=== PATIENT | male | born 1955 | race Caucasian/White ===

== ENCOUNTER 2019-07-22 08:15 | Emergency (ER) | payer OTHER ==
[~2019-07-22] VITALS: Ht 177.8 cm; Wt 85.7 kg
[2019-07-22] MEDS ORDERED: GLIP10 PO (10:00)
[2019-07-22] MEDS ORDERED: THERA-D2000 UNIT PO (10:00)
[2019-07-22] MEDS ORDERED: METF500 PO (10:00)
[2019-07-22] MEDS ORDERED: ATOR20 PO (10:01)
[2019-07-22] MEDS ORDERED: VIT E PO (10:01)
[2019-07-22] MEDS ORDERED: Fosinopril Sodi40 MG PO (10:01)
[2019-07-22] MEDS ORDERED: PLAVIX75 MG PO (10:01)
[2019-07-22] MEDS ORDERED: TAMS.4ER PO (10:01)
[2019-07-22] MEDS ORDERED: CEPH500 (10:02)
[2019-07-22] MEDS ORDERED: HYDCHL25 PO (10:02)
[2019-07-22] MEDS ORDERED: HYDR1TAB94 PO (11:00)
[2019-07-22] MEDS ORDERED: Mupirocin22 GM TOP ×2 (11:00→11:11)
[2019-07-22] MEDS ORDERED: Zovirax800 MG PO ×2 (11:00→11:11)
== END 2019-07-22 11:19 | disposition home or self-care (01) ==
LOC: ER 08:15
DX: B02.9 Zoster without complications (principal); F17.200 Nicotine dependence, unspecified, uncomplicated; Z88.5 Allergy status to narcotic agent; Z88.8 Allergy status to other drugs, medicaments and biological substances; Z79.899 Other long term (current) drug therapy; Z79.84 Long term (current) use of oral hypoglycemic drugs; Z79.02 Long term (current) use of antithrombotics/antiplatelets
CPT/HCPCS: 99283

== ENCOUNTER 2022-07-31 17:41 | Emergency (ER) | payer OTHER ==
[~2022-07-31 17:41] MED LIST: ATOR20 PO; CEPH500; Fosinopril Sodi40 MG PO; GLIP10 PO; HYDCHL25 PO; HYDR1TAB94 PO; METF500 PO; Mupirocin22 GM TOP; PLAVIX75 MG PO; TAMS.4ER PO; THERA-D2000 UNIT PO; VIT E PO; Zovirax800 MG PO
== END 2022-07-31 21:26 | disposition home or self-care (01) ==
DX: I46.9 Cardiac arrest, cause unspecified (principal); Z88.8 Allergy status to other drugs, medicaments and biological substances; Z79.84 Long term (current) use of oral hypoglycemic drugs; Z79.899 Other long term (current) drug therapy; Z87.891 Personal history of nicotine dependence